=== PATIENT | female | born 1960 | race Caucasian/White ===

== ENCOUNTER 2023-07-10 11:20 | Outpatient (AMB) | payer OTHER, SELFPAY ==
--- NOTE | 2023-07-10 11:38 | HO.SPINEOV ---
Intake Intake Visit Reasons: radiculopathy Intake Note: Ms. Thomas is here today c/o neck pain. MRI done @ [facility]/brought disc. 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 She is a 63-year-old female presents to the office today for evaluation of a multiyear history of pain on the left side of her neck which radiates up to the top of her head. Occasions she will get some pain going down her left arm but really the neck pain is the reason she is here in the office today. She has tried things like Tylenol, ibuprofen, trigger point injections, occipital blocks, chiropractic and physical therapy and nothing seems to help. She is very frustrated because her quality of life is suffering and she has very little ability to get any sleep. She also has low back issues and these 2 things come lb together to make her quality of life significantly poor. She is here today to see if there is any thing we can do surgically to help with the degenerative discs seen on her cervical spine MRI. PMH: Emphysema, she continues to smoke about half pack a day, she does not use home oxygen, lumbar surgery [place] [address] Gonzalez, partial hysterectomy, cholecystectomy Social hx: Smokes half-pack a day Medications: Prozac, trazodone, Klonopin Allergies: Penicillin gives her hives and facial swelling Physical exam: Strength, reflexes, gait are all normal Imaging review: Cervical MRI done at [facility] in april 2023 shows degenerative disc disease at C5-6 and C6-7 with mild to moderate bilateral foraminal narrowing, worse on the left C5-6. Impression: 63-year-old female presents today for evaluation of left-sided neck pain which radiates up the back of her head. She does not have any real radicular symptoms to report. She has no focal weakness or reflex changes. I showed her the MRI done and we discussed the natural history of degenerative disc disease and the difficulty establishing the source of neck pain. I showed her films to Dr. Osuna, he agrees that the discs at C5-6 and C6-7 could be part of the explanation of her neck pain but that there is no guarantee. The typical treatment for this would be anterior cervical diskectomy and fusion. The success rate is 60-70% for treatment of neck pain that has been refractory to conservative treatment. At this point her quality of life is suffering so bad and she has not responded to any of the typical injections and conservative in treatment that she wishes to proceed with surgery. Pt was given risk and benefits of surgery including but not limited to infection, hematoma , nerve injury,durotomy, weakness,bowel/bladder injury, persistent pain, vocal hoarseness, dysphagia, hardware failure as well as the option to continue with conservative treatment and patient wishes to proceed with surgery. Pt is aware they should stop their motrin, aspirin 7 days prior to surgery. All questions were answered to the best of our ability. If there is anything about this patients medical history that we have overlooked or concerns you have about us proceeding with surgery we would appreciate any input you can offer. Thank you for allowing us to care for your patient. The total time spent with this visit with this patient was 45 minutes reviewing history, physical exam, cervical spine imaging review, and implementation of treatment plan or further diagnostic testing Wayne Osuna MD,PhD [facility] Coding Level of Care Code New Pt Level 4 (76566) Diagnoses Neck pain M54.2
== END 2023-07-10 12:45 | disposition home or self-care (01) ==
PROVIDERS: PCP Internal Medicine; Referring Provider Physician Assistant; Visit Provider Physician Assistant
DX: M54.2 Cervicalgia (principal)
CPT/HCPCS: 99204

== ENCOUNTER → 2023-07-10 11:20 | Outpatient (BNVA) | payer OTHER, SELFPAY | PROVIDERS: Visit Provider Physician Assistant ==

== ENCOUNTER 2023-09-01 06:00 | Day surgery (SDC) | payer OTHER, SELFPAY ==
--- NOTE | 2023-08-19 | ECG_ITS ---
Test Reason : PRE OP Blood Pressure : / mmHG Vent. Rate : 063 BPM Atrial Rate : 063 BPM P-R Int : 154 ms QRS Dur : 078 ms QT Int : 408 ms P-R-T Axes : -13 -16 032 degrees QTc Int : 417 ms Normal sinus rhythm Normal ECG No previous ECGs available Referred By: Kaur Benedict Electronically Signed By:TONYA HERNÁNDEZ MD
[2023-08-19 12:13] VITALS: BP 115/58; PULSE 68; RESP 16; O2SAT 95; BMI 20.7
[2023-08-19 14:14] LABS: Hematocrit 38.8 % (37.0-47.0); Hemoglobin 11.9 g/dl (12.0-16.0); Mean Corpuscular HGB Conc 30.7 g/dl (31.0-35.0); Mean Corpuscular Hemoglobin 22.4 pg (27.0-33.0); Mean Corpuscular Volume 73.1 fL (80.0-98.0); Mean Platelet Volume 10.1 fL (9.4-12.3); Platelet Count 281 X10*3/uL (160-400); Red Blood Count 5.31 X10*6/uL (4.20-5.50); Red Cell Distribution Width 14.3 % (11.0-16.0); White Blood Count 9.8 X10*3/uL (4.8-10.8)
[2023-08-19 15:08] LABS: Anion Gap 13 (12-20); Blood Urea Nitrogen 13 mg/dL (9-16); Calcium 9.4 mg/dL (8.4-10.2); Carbon Dioxide 29 mmol/L (22-29); Chloride 101 mmol/L (96-108); Estimated Glomerular Filt Rate > 60; Glucose Random 93 mg/dL (60-115); Sodium 139 mmol/L (135-145)
[2023-09-01] VITALS (13 sets, daily range): BP systolic 91–131; BP diastolic 39–55; PULSE 69–100; RESP 16–18; TEMP 36.3–36.8; O2SAT 95–97; BMI 20.5
--- NOTE | ~2023-09-01 | FL_ITS ---
EXAMINATION: XR FLUOROSCOPY WITH IMAGES CLINICAL INFORMATION: C5-C6, C6-C7 anterior cervical discectomy with fusion. COMPARISON: None available. TECHNIQUE: Fluoroscopy Supervised By: Dr. Gabino Osuna. Fluoroscopy Time: 0.0 minutes. Cumulative Dose: 0.389 mGy. DAP: 0.0605 Gycm2. Images: 2. FINDINGS: Images demonstrate ACDF hardware at C5-C6 and C6-C7 FL/FL guidance in OR IMPRESSION: Fluoroscopy guidance for cervical spine surgery
[2023-09-01] MEDS: Gabapentin 300 MG CAPSULE PO (06:37)
[2023-09-01] MEDS: Lactated Ringers 1,000 ML 100 ML IVCONT (06:37)
[2023-09-01] MEDS: methocarbamoL 750 MG TABLET PO (06:37)
[2023-09-01] MEDS: vancomycin HCL 1,000 MG in 0.9 % Sodium Chloride 250 ML 270 MG IV (06:37)
--- NOTE | 2023-09-01 06:45 | PC.NURSE ---
Pre op Vanco 1000mg dose verified with Jimmie(Pharmacy).
[2023-09-01] MEDS: Albuterol Sulfate (0.083%) 2.5 MG/3 ML VIAL.NEB INHALE (06:53)
--- NOTE | 2023-09-01 06:59 | MHC.SHP ---
Pre-Procedural Eval Section A Date of Service: 09/01/23 Section B Chief Complaint: Cervicalgia Allergies: Allergies Allergy/AdvReac Type Severity Reaction Status Date / Time Penicillins Allergy Severe Anaphylaxis Verified 09/01/23 06:11 Review of Systems Sugical H&P ROS: Negative: Constitution, Cardiovascular, Respiratory, Neurological, Psychiatric, Hem-Onc, Allergic/Immunologic, Gastrointestinal, Genitourinary, Musculoskeletal, Integumentary, Endocrine and Eyes/Ears/Nose/Throat Exam Surgical H&P Exam: Not Evaluated: HEENT, Not Evaluated: Heart, Not Evaluated: Lungs, Not Evaluated: Extremities, Not Evaluated: Abdomen, Not Evaluated: Skin and Not Evaluated: Neurological Plan Diagnosis/Plan: Unchanged I have reviewed the history and physical and performed a pertinent physical examination on my patient. No changes have occurred unless specified. Plan remains the same, C5-6, C6-7 ACDF. Time Spent With Patient Time: Total time managing care of this patient today __10__ minutes.
--- NOTE | 2023-09-01 07:15 | P.CONAN_ITS ---
Documented by User: Kaur Benedict NP 08/24/23 12:38 HPI - Anesthesia Eval Consult details Narrative: 63yo F for C5-6,C6-7 Ant Cerv Discectomy w/ fusion, 09/01/23 Covid in June. Fully recovered. No CP with minimal activity d/t pain. Moderate TOBAR d/t COPD at baseline GERD. prn PPI 1-2 x weekly COPD/Smoker. Does not require albuterol inhaler. Follows with PCP, no pulmo PMFSH Active Problems Active Problems: All Active Problems (Updated 08/19/23 @ 12:12 by Paula Chairez, JERARDO) Neck pain (Acute) Past Medical History Medical History Crohn's disease Personal history of COVID-19 Anxiety GERD (gastroesophageal reflux disease) Renal calculi Low back pain Smoker Emphysema/COPD Family History Family history of problems with anesthesia: No Surgical History Surgical History Hx of cystoscopy Hx of appendectomy Hx of colonoscopy Hx of cholecystectomy History of partial hysterectomy History of lumbar surgery History of Problems with Anesthesia: Yes (PONV with spinal anesthesia, No issue with GA) Social History Social History Household Members: Spouse Housing: House Are you a primary childcare attendant to a significant other at home: No Do you presently have visiting nurse or other home services: No Patient Tobacco Use Status: Current everyday Tobacco user Tobacco use type: Cigarette Cigarettes Per Day: 20 Years Smoked: 50 Smoked in Last 30 Days: Yes Patient Interested in Nicotine Replacement: Yes Patient Given Instructions on How to Stop Smoking: Yes Date Education Initiated: 08/19/23 Second Hand Smoke Exposure: Yes () Use of substances other than those prescribed or required for medical reasons: No Have you been hit, kicked, punched, or otherwise hurt by someone within the past year? If so, by whom?: No Are you DNR?: No Advance Directives: No Advance Directives Information Provided: Yes Advance Directives on File: No Recently lost weight without trying: No Nutrition Risks: No Nutritional Risk Meds Allergies Allergy/AdvReac Type Severity Reaction Status Date / Time Penicillins Allergy Severe Anaphylaxis Verified 09/01/23 06:11 Home Medications Medication Instructions Recorded Confirmed Last Taken Type clonidine HCl 0.1 mg tablet 0.1 mg PO BEDTIME 08/18/23 09/01/23 08/31/23 History fluoxetine 40 mg capsule 40 mg PO DAILY 08/18/23 09/01/23 08/31/23 History trazodone 100 mg tablet 100 mg PO BEDTIME 08/18/23 09/01/23 08/31/23 History albuterol sulfate 90 mcg/actuation 1 puff inhalation Q4H PRN 08/19/23 09/01/23 Unknown History aerosol inhaler Shortness Of Breath esboztj-zlkqhalbvgkfr-tvirvpfr 250 1 tab PO Q4-6H PRN Pain 08/19/23 09/01/23 Unknown History mg-250 mg-65 mg tablet (Excedrin Migraine) naproxen sodium 220 mg capsule 220 mg PO Q12H PRN Pain 08/19/23 09/01/23 08/25/23 History (Aleve) omeprazole 20 mg capsule,delayed 20 mg PO DAILY PRN Gastric Reflux 08/19/23 09/01/23 Unknown History release Exam Exam Date and Time: August 19, 2023 1241 Height,Weight and Vital Signs: Height 5 ft 3 in Weight 53.07 kg Last Vital Signs Pulse 68 08/19/23 12:13 Resp 16 08/19/23 12:13 BP 115/58 L 08/19/23 12:13 Pulse Ox 95 08/19/23 12:13 O2 Del Method Room Air 08/19/23 12:13 Pertinent Lab Results Pertinent Lab Results: Lab Results 08/19/23 Range/Units 13:25 WBC 9.8 (4.8-10.8) X10*3/uL RBC 5.31 (4.20-5.50) X10*6/uL Hgb 11.9 L (12.0-16.0) g/dl Hct 38.8 (37.0-47.0) % MCV 73.1 L (80.0-98.0) fL MCH 22.4 L (27.0-33.0) pg MCHC 30.7 L (31.0-35.0) g/dl RDW 14.3 (11.0-16.0) % Plt Count 281 (160-400) X10*3/uL MPV 10.1 (9.4-12.3) fL Absolute Nucleated RBC 0.000 (0.0-0.012) X10*3/uL Nucleated RBC % (auto) 0.0 (0.0-0.2) /100WBC Sodium 139 (135-145) mmol/L Potassium 4.0 (3.3-5.1) mmol/L Chloride 101 (96-108) mmol/L Carbon Dioxide 29 (22-29) mmol/L Anion Gap 13 (12-20) BUN 13 (9-16) mg/dL Creatinine 0.80 (0.5-1.4) mg/dL Estim Creat Clear Calc 58.0 Estimated GFR > 60 Random Glucose 93 (60-115) mg/dL Calcium 9.4 (8.4-10.2) mg/dL Narrative Narrative: EKG 07/2023 Vent. Rate : 063 BPM Atrial Rate : 063 BPM P-R Int : 154 ms QRS Dur : 078 ms QT Int : 408 ms P-R-T Axes : -13 -16 032 degrees QTc Int : 417 ms Normal sinus rhythm Normal ECG No previous ECGs available Airway Mallampati Class: II TM Dist: >3cm Neck ROM: Limited Partial: Lower Heart: RRR Lungs: Dim bases, but clear throughout Assessment and Plan Assessment Anesthesia Assessment: Anesthesia Plan Discussed, Smoking Cess. Discussed and PAT Visit Final Anesthetic Review Family History of Problems with Anesthesia: No History of Problems with Anesthesia: Yes (PONV with spinal anesthesia, No issue with GA) Documented by User: Radha Suggs DO 09/01/23 07:21 [facility] Past Medical History Medical History Crohn's disease Personal history of COVID-19 Anxiety GERD (gastroesophageal reflux disease) Renal calculi Low back pain Smoker Emphysema/COPD Family History Family history of problems with anesthesia: Yes Surgical History Surgical History Hx of cystoscopy Hx of appendectomy Hx of colonoscopy Hx of cholecystectomy History of partial hysterectomy History of lumbar surgery History of Problems with Anesthesia: Yes (PONV with spinal anesthesia, No issue with GA) Social History Social History Household Members: Spouse Housing: House Are you a primary childcare attendant to a significant other at home: No Do you presently have visiting nurse or other home services: No Patient Tobacco Use Status: Current everyday Tobacco user Tobacco use type: Cigarette Cigarettes Per Day: 20 Years Smoked: 50 Smoked in Last 30 Days: Yes Patient Interested in Nicotine Replacement: Yes Patient Given Instructions on How to Stop Smoking: Yes Date Education Initiated: 08/19/23 Second Hand Smoke Exposure: Yes () Use of substances other than those prescribed or required for medical reasons: No Have you been hit, kicked, punched, or otherwise hurt by someone within the past year? If so, by whom?: No Are you DNR?: No Advance Directives: No Advance Directives Information Provided: Yes Advance Directives on File: No Recently lost weight without trying: No Nutrition Risks: No Nutritional Risk Meds Allergies Allergy/AdvReac Type Severity Reaction Status Date / Time Penicillins Allergy Severe Anaphylaxis Verified 09/01/23 06:11 Home Medications Medication Instructions Recorded Confirmed Last Taken Type clonidine HCl 0.1 mg tablet 0.1 mg PO BEDTIME 08/18/23 09/01/23 08/31/23 History fluoxetine 40 mg capsule 40 mg PO DAILY 08/18/23 09/01/23 08/31/23 History trazodone 100 mg tablet 100 mg PO BEDTIME 08/18/23 09/01/23 08/31/23 History albuterol sulfate 90 mcg/actuation 1 puff inhalation Q4H PRN 08/19/23 09/01/23 Unknown History aerosol inhaler Shortness Of Breath rygsmmp-uhbuflxxcevzs-vfgelhbd 250 1 tab PO Q4-6H PRN Pain 08/19/23 09/01/23 Unknown History mg-250 mg-65 mg tablet (Excedrin Migraine) naproxen sodium 220 mg capsule 220 mg PO Q12H PRN Pain 08/19/23 09/01/23 08/25/23 History (Aleve) omeprazole 20 mg capsule,delayed 20 mg PO DAILY PRN Gastric Reflux 08/19/23 09/01/23 Unknown History release Exam Exam Date and Time: September 01, 2023 0710 Height,Weight and Vital Signs: Height 5 ft 3 in Weight 53.07 kg Last Vital Signs Pulse 68 08/19/23 12:13 Resp 16 08/19/23 12:13 BP 115/58 L 08/19/23 12:13 Pulse Ox 95 08/19/23 12:13 O2 Del Method Room Air 08/19/23 12:13 Vital Signs Pulse Rate 68 08/19/23 12:13 Respiratory Rate 16 08/19/23 12:13 Blood Pressure 115/58 L 08/19/23 12:13 Pulse Oximetry 95 08/19/23 12:13 Oxygen Delivery Method Room Air 08/19/23 12:13 Temperature 97.5 F 09/01/23 06:40 Pulse Rate 69 09/01/23 06:53 Respiratory Rate 16 09/01/23 06:53 Blood Pressure 111/42 L 09/01/23 06:40 Pulse Oximetry 95 09/01/23 06:40 Oxygen Delivery Method Room Air 09/01/23 06:40 Airway Mallampati Class: II TM Dist: >3cm Neck ROM: Limited Partial: Lower Heart: S1S2 Lungs: CTAB Assessment and Plan Assessment Anesthesia Assessment: Anesthesia Plan Discussed and Chart Reviewed Final Anesthetic Review Family History of Problems with Anesthesia: Yes History of Problems with Anesthesia: Yes (PONV with spinal anesthesia, No issue with GA) NPO: Yes ASA Class: II Final Preanesthetic Review: No Changes in Pt Med Stat, Meds/Allgs Chart Reviewed, Consent Obtained/Reviewed and Anes Risks/Benef Reviewed Patient Risk: Low Procedure Risk: Low Anesthetic Plan Anesthetic Plan: GA and Agree w/ Assess. and Plan Disposition: Standard PACU
--- NOTE | 2023-09-01 08:15 | PC.NURSE ---
Pt received Albuterol tx pre-op. Dr Suggs aware.
--- NOTE | 2023-09-01 09:35 | PM.DS ---
DS: Providers Provider Date of Service: 09/01/23 Date of discharge: 09/01/23 Primary care physician: Aby Webster MD Admitting clinician: Gabino Osuna DS: Diagnosis Discharge Diagnosis (1) Neck pain: Status: Acute DS: Summary Time Attestation Discharge coordination time: Less than 30 minutes Quality: Safe Use of Opioids Does Pt have an Active Cancer Diagnosis on the Problem List?: No Quality: Stroke Does the patient have a stroke diagnosis?: No Physical Exam Vital Signs: Vital Signs: Last Vital Signs Temp 97.5 F 09/01/23 06:40 Pulse 69 09/01/23 06:53 Resp 16 09/01/23 06:53 BP 111/42 L 09/01/23 06:40 Pulse Ox 95 09/01/23 06:40 O2 Del Method Room Air 09/01/23 06:40 BMI result Body Mass Index 20.5 Discharge Plan Discharge Patient Disposition: Home, Self-Care Referrals: Aby Webster MD [Primary Care Provider] - 1 Week Discharge Medications: New docusate sodium [Colace] 100 mg capsule 100 mg PO BID Qty: 20 0RF oxycodone 5 mg tablet 5 mg PO Q4H PRN (Reason: pain) Qty: 30 0RF Rx Instructions: Partial Fill upon patient request. Continued fluoxetine 40 mg capsule 40 mg PO DAILY clonidine HCl 0.1 mg tablet 0.1 mg PO BEDTIME trazodone 100 mg tablet 100 mg PO BEDTIME omeprazole 20 mg Capsule,Delayed Release(Dr/Ec) 20 mg PO DAILY PRN (Reason: Gastric Reflux) Excedrin Migraine 250-250-65 mg Tablet 1 tab PO Q4-6H PRN (Reason: Pain) naproxen sodium [Aleve] 220 mg Capsule 220 mg PO Q12H PRN (Reason: Pain) albuterol sulfate 90 mcg/actuation HFA aerosol inhaler 1 puff inhalation Q4H PRN (Reason: Shortness Of Breath) Discharge Orders: Discharge Order (Routine); Ordered 09/01/23 Ordered By: Wayne Scott Diet: Advance to usual diet Activity on Discharge: As tolerated Activity Restrictions/Additional Instructions: After your spinal surgery we ask you to observe the following restrictions/guidelines: Activity: It is normal to feel some discomfort as you increase your activity, but that will improve with time. We ask you avoid heavy lifting or acitivities that cause pain. As a general rule, 8lbs is a safe limit for lifting right after surgery. Walk as much as you feel comfortable but not to exhaustion. You will feel extra tired the first few days after surgery. Stay well hydrated. It is OK to walk up and down stairs You may return to driving when you are off narcotics (such as vicodin, oxycodone, dilaudid, etc), and you are back to normal functional capacity. If you have any concerns please check with office before driving. Return to work is specific to each patient and each surgery, so please speak with your doctor/PA at first follow up. Please bring paperwork such as FMLA at that time if you need it filled out. Medications: For optimum pain control, it is best to start with a combination of 500 mg of Tylenol every 4 hours with 600 mg of Motrin every 8 hours, and use narcotics as needed in between for breakthrough pain. We will give you a short supply of narcotics after surgery (usually one weeks worth). If you need more please call the office but do not use more than prescribed. You will need to give our office 48 hours notice if you need narcotics refilled and we do not fill narcotics on weekends or evenings. If you are on a narcotic, it is a good idea to take a stool softener such as colace or senna to avoid constipation If you take blood thinner such as aspirin, Plavix, Coumadin, Effient, Eliquis etc for conditions such as Afib, DVT, Pulmonary embolus, coronary disease, stents etc please speak with your surgeon about specific details as to when you can resume these medications. You can resume NSAIDs on post op day 1 (eg: Motrin, Naproxen, etc). Follow up: Please call the office, , after surgery to arrange a 3 week follow up for wound check. Wound Care: You may remove your dressing on the first day after surgery. You may leave open to air. Please do not remove the steri strips underneath. they will fall off on their own in one week. IT IS NORMAL FOR THE WOUND TO OOZE OR BE BLOODY FOR A FEW DAYS AFTER SURGERY. IF THIS HAPPENS JUST PLACE NEW DRESSING OVER IT TO AVOID STAINING CLOTHES. You may shower on post op day # 1 We ask that you do not let the water soak the wound. If it does get wet, just towel dry lightly. Please do not scrub your incision or place any type of chemical/ointment on the wound. No tub baths, pools or jacuzzis for one month. If you have any leaking or redness from your wound, or fevers, please call office
--- NOTE | 2023-09-01 09:36 | W.PM.OPN ---
Operative Note Operative Note Date of Service: 09/01/23 Narrative: Preoperative Diagnosis: Cervical degenerative disc disease C5-6, C6-7 with chronic neck pain Procedure: C5-6, C6-7 Anterior discectomy, arthrodesis and implantation cage ; C5-C7 anterior instrumentation ; local autograft; microscope Informed Consent was obtained for this operation. I have explained the nature, purpose and benefits of the operation. I have discussed the risks and benefit of the operation including possible complications or adverse events with patient/family. Alternative(s) were discussed with the patient with their relative benefits and risks as well as the consequences of not accepting the operation were included in obtaining consent. Surgeon: NAHED COTO MD, PHD Procedure Assisted By: kavin Hall Description of Procedure: This 63-year-old female suffering from chronic neck pain. An MRI shows severe degenerative disc disease C5-6 and C6-7. She failed conservative treatment. We offered her an anterior diskectomy and fusion of the above-mentioned levels. The procedure and complications were explained. The patient was consented. The patient was brought to the operating room and endotracheally intubated. The patient was put in supine position with slight extension of the neck. Prep and drape was done followed by timeout. A mid cervical incision was made followed by opening of the platysma. The prevertebral fascia was reached following the natural planes while the physician video production assistant provided manual retraction. The prevertebral fascia was opened to expose the disc space. A spinal needle was placed in the disk space to confirm the correct level with xray. The longus colli muscles were released bilaterally and a self retaining retractor was inserted. The anterior osteophytes were resected from C5-6 and C6-7 and saved for autograft. An initial diskectomy was done of C5-6 and C6-7 towards the posterior annulus. Two [place] pins were placed in the C5 and C6 vertebral bodies and distraction was give over the interspace. Poor bone quality was encountered. The microscope was brought in. The remainder of the discectomy was completed. The posterior ligament was opened and resected to expose the underlying dura. Osteophytes were resected from the body of C5-C6 and saved for autograft. The endplates were prepared after which a 6 mm cage filled with autograft was inserted into the disc space. A separate attached plate was locked down with 2 x 14 mm screws as anterior instrumentation. The same procedure was repeated for the C6-C7 level. Severe degeneration of the disc was seen. The endplates were prepared followed by placement of a 6 mm cage filled with autograft. A separate attached plate was locked down with 2 x 14 mm screws. Final x-rays in AP and lateral projection showed a satisfactory position of the implant. The physician video production assistant took over. The [place] pin was removed. Hemostasis was done. He closed the incision in 2 layers with a 3-0 Vicryl. Steri-Strips used to approximate incision. An OpSite with Tegaderm was used to cover the incision. All sponge and needle counts were correct. Patient was extubated and transported in stable is to recovery room. Anesthesia: General Estimated Blood Loss (ml): 60 mL Duration of Surgery: 90 minutes Postoperative Plan: Discharge home Complications: None
== END 2023-09-01 12:26 | disposition home or self-care (01) ==
PROVIDERS: Nurse Practitioner; PCP Internal Medicine; Visit Provider Neurological Surgery
PROC: (CPT 22551; principal; 2023-09-01 07:30)
DX: M50.322 Other cervical disc degeneration at C5-C6 level (principal); M50.323 Other cervical disc degeneration at C6-C7 level; G89.29 Other chronic pain; M54.2 Cervicalgia; M54.50 Low back pain, unspecified; J43.9 Emphysema, unspecified; F17.210 Nicotine dependence, cigarettes, uncomplicated; Z79.899 Other long term (current) drug therapy; Z88.0 Allergy status to penicillin; Z98.890 Other specified postprocedural states
CPT/HCPCS: 22551; 22552; 22853 ×2; 20936; 22845; 36415; 80048; 85027; 93005; 94640; C1713; J0131; J1100; J2250; J2371; J2405; J3010; J3370; L8699

== ENCOUNTER → 2023-09-01 06:00 | Outpatient (BNV) | payer OTHER, SELFPAY | PROVIDERS: PCP Internal Medicine; Visit Provider Physician Assistant | DX: M50.022 Cervical disc disorder at C5-C6 level with myelopathy (principal); M50.023 Cervical disc disorder at C6-C7 level with myelopathy | CPT/HCPCS: 20936; 22551; 22552; 22845; 22853; 99499 ==

== ENCOUNTER 2023-09-23 12:37 | Outpatient (AMB) | payer OTHER, SELFPAY ==
--- NOTE | 2023-09-23 13:02 | HO.SPINEOV ---
Intake Intake Visit Reasons: 1st post op Intake Note: Ms. Thomas is here today for her 1st post-op visit. Human Resource Adviser Required: No Allergies Penicillins Allergy (Severe, Verified 09/01/23 06:11) Anaphylaxis Assessment & Plan Assessment & Plan (1) History of cervical spinal surgery: Code(s): Z98.890 - Other specified postprocedural states Plan Procedure: C5-6, C6-7 ACF Teresa comes in today for her 1st postoperative visit. She reports she is very satisfied with the surgery and feels much better than she did pre-operatively. She reports she is up walking around and completing the majority of her ADLs. She reports that she no longer suffers from significant neck pain but does still report mild shoulder pain on the left side with good relief with OTC pain medication. She did raise questions regarding a fall that she had in her 1st 2 days postoperatively where she log rolled out of bed and hit her chin on her nightstand. She did not have any symptoms after this event and this likely did not cause any problems to her fusion instrumentation. No neurological deficits. Patient is able to ambulate well, rises from a seated position without difficulty. Incision site is closed, well healing, with no signs of drainage. We will follow-up with the patient in 6 weeks for her 2nd postoperative visit. At that time we will get cervical x-rays to review with the patient. Shiva Osuna MD,PhD [facility] Coding Level of Care Code Global (61563) Diagnoses History of cervical spinal surgery Z98.890
== END 2023-09-23 13:16 | disposition home or self-care (01) ==
PROVIDERS: PCP Internal Medicine; Visit Provider Physician Assistant
DX: Z98.890 Other specified postprocedural states (principal)
CPT/HCPCS: 99024

== ENCOUNTER → 2023-09-23 12:37 | Outpatient (BNVA) | payer OTHER, SELFPAY | PROVIDERS: Visit Provider Physician Assistant ==

== ENCOUNTER 2024-03-25 15:04 | Outpatient (AMB) | payer OTHER, SELFPAY ==
--- NOTE | 2024-03-25 15:09 | A.SPINEOV_ITS ---
Intake Visit Reasons: neck pain Intake Note: Ms. Thomas is here today c/o neck pain. Security Officer Required: No Allergies Penicillins Allergy (Severe, Verified 09/01/23 06:11) Anaphylaxis Assessment & Plan Assessment & Plan (1) History of cervical spinal surgery: Code(s): Z98.890 - Other specified postprocedural states Category: Surgical (2) Neck pain: Code(s): M54.2 - Cervicalgia Category: Medical Plan: Dear colleague, On 03/25/2024 I saw for postoperative visit Teresa Thomas. She status post anterior diskectomy and fusion C5-6 and C6-7. She was initially doing well but lately her preoperative symptoms have returned. She was aware that this could happen as it is unpredictable how neck pain is going to respond to a cervical fusion. A 2nd complaint is back pain radiating to her left thigh an outside of her left lower leg. This has been going on for about 2 months. Today cervical x-rays showed good position of the interbody devices and anterior instrumentation. I hope that improvement of the neck pain will occur in the near future. I will order an MRI of the lumbar spine to see if we can find a reason for her left lumbar radiculopathy. I will see the patient after the MRI is done. Gabino Osuna MD, PhD Spine Fellowship Trained Neurosurgeon Director, [facility] (3) Lumbar radiculopathy: Code(s): M54.16 - Radiculopathy, lumbar region Category: Medical Plan q Orders: Orders XR cervical spine 4V Today M54.2 - Cervicalgia, Z98.890 - Other specified postprocedural states MR lumbar spine wo con Today M54.16 - Radiculopathy, lumbar region Coding Level of Care Code Global (29817) Diagnoses History of cervical spinal surgery Z98.890 Neck pain M54.2 Lumbar radiculopathy M54.16
== END 2024-03-25 15:36 | disposition home or self-care (01) ==
PROVIDERS: PCP Internal Medicine; Visit Provider Neurological Surgery
DX: M54.2 Cervicalgia (principal); M54.16 Radiculopathy, lumbar region; Z98.890 Other specified postprocedural states
CPT/HCPCS: 99213

== ENCOUNTER 2024-03-25 15:04 | Outpatient (REF) | payer OTHER, SELFPAY ==
--- NOTE | ~2024-03-25 | XR_ITS ---
EXAMINATION: XR CERVICAL SPINE CLINICAL INFORMATION: Other specified postprocedural status. COMPARISON: Fluoroscopy in OR images of 09/01/2023, MR cervical spine of 04/27/2023. TECHNIQUE: 4 views of the cervical spine. FINDINGS: The bones are diffusely demineralized. Degenerative changes between the anterior arch of C1 and the odontoid. Spondylosis with moderate loss of disc space height at C4-C5. Status post ACDF with hardware spanning C5-C6-C7 levels. Hardware appears intact. Alignment maintained. Limited visualization of C7 due to overlying soft tissues. XR/XR cervical spine 4V IMPRESSION: Status post ACDF with hardware spanning C5-C6-C7 levels. Hardware appears intact. Alignment maintained.
== END 2024-03-25 15:05 | disposition home or self-care (01) ==
LOC: HO.HOSX 15:04
PROVIDERS: PCP Internal Medicine; Visit Provider Neurological Surgery
DX: Z98.890 Other specified postprocedural states (principal); M54.2 Cervicalgia; Z98.1 Arthrodesis status
CPT/HCPCS: 72050

== ENCOUNTER 2024-04-20 16:01 | Outpatient (REF) | payer OTHER, SELFPAY ==
--- NOTE | ~2024-04-20 | MR_ITS ---
EXAMINATION: MR LUMBAR SPINE WITHOUT CONTRAST CLINICAL INFORMATION: Radiculopathy, lumbar region. COMPARISON: None available. TECHNIQUE: MRI of the lumbar spine was obtained using routine sequences without contrast. FINDINGS: Normal alignment. Interbody spacer at L5-S1. No acute bone marrow abnormality. The vertebral body heights are preserved. Multilevel disc desiccation without significant disc height loss. Multilevel endplate osteophytosis. The visualized spinal cord is normal in caliber. No abnormal cord signal. The conus medullaris terminates at L1-2. T12-L1: No significant spinal canal or neural foraminal narrowing. L1-2: No significant spinal canal or neural foraminal narrowing. L2-3: No significant spinal canal or neural foraminal narrowing. L3-4: Diffuse disc bulge with superimposed left subarticular disc protrusion. Bilateral facet arthrosis. No significant spinal canal stenosis. Mild to moderate left and mild right neural foraminal narrowing. L4-5: Diffuse disc bulge, ligamentum flavum hypertrophy, and bilateral facet arthrosis with trace right facet joint effusion. No significant spinal canal stenosis. Moderate left neural foraminal narrowing with the disc abutting the left exiting L4 nerve roots. L5-S1: No significant spinal canal or neural foraminal narrowing. The paravertebral soft tissues are unremarkable. Bilateral renal cysts. MR/MR lumbar spine wo con IMPRESSION: Multilevel lumbar spondylosis without significant spinal canal stenosis. Neural foraminal narrowing is worst and moderate on the left at L4-L5 with the disc abutting the exiting left L4 nerve root.
== END 2024-04-20 16:02 | disposition home or self-care (01) ==
LOC: HO.MRI 16:01
PROVIDERS: PCP Internal Medicine; Visit Provider Neurological Surgery
DX: M54.16 Radiculopathy, lumbar region (principal)
CPT/HCPCS: 72148

== ENCOUNTER 2024-06-17 11:32 | Outpatient (AMB) | payer OTHER, SELFPAY ==
--- NOTE | 2024-06-17 11:33 | HO.SPINEOV ---
Intake Visit Reasons: MRI follow up Intake Note: Ms. Thomas is here to F/u on the results to MRI Correctional Treatment Specialist Required: No Allergies Penicillins Allergy (Severe, Verified 09/01/23 06:11) Anaphylaxis Assessment & Plan Assessment & Plan (1) Lumbar radiculopathy: Code(s): M54.16 - Radiculopathy, lumbar region Category: Medical Plan Mrs Thomas is returning today to review her MRI. The last time she saw Dr. Osuna she was reporting that she has had a multiyear history of pain going down her left leg into her outer calf with numbness in the top of her foot. The pain has been getting steadily worse. She had a previous L5-S1 anterior lumbar interbody fusion done by Dr. Gonzalez 20 years ago. She did have some issues after the surgery and never felt quite right, but was functional and moving around. This new back pain and pain going down her leg started maybe 4 or 5 years ago in his steadily gotten worse. It is present throughout the day, can be present with changing positions. She has an intact lower extremity strength exam. She is trialed gddv-jrk-qyatqah anti-inflammatories, Tylenol. She has not done any injections for this recently. No recent physical therapy. Dr. Osuna and I reviewed her MRI and x-rays done here at [facility], and although there is foraminal stenosis at L4, her standing x-rays show a significant dextroscoliosis develop in the upright posture which we think may be also contributing to compression of the L5 nerve in the lateral recess. He thinks she would be a good candidate for a L4-5 trans Kambin oblique lateral lumbar interbody fusion. We have gone ahead and tentatively booked her for the 1st week in August. I told her however that her insurance company likely would not approve the operation unless she attempted 6 weeks of physical therapy so I gave her a referral for that. I do not think that 6 weeks of PT is going to correct her scoliosis or make her symptom free after all these years but nonetheless this is the system that we have to work within. She will call me once the therapy is completed so we can document that she went through it. Pt was given risk and benefits of surgery including but not limited to infection, hematoma , nerve injury,durotomy, weakness,bowel/bladder injury, persistent pain, adjacent segment disease as well as the option to continue with conservative treatment and patient wishes to proceed with surgery. Pt is aware they should stop their motrin, aspirin 7 days prior to surgery. All questions were answered to the best of our ability. If there is anything about this patients medical history that we have overlooked or concerns you have about us proceeding with surgery we would appreciate any input you can offer. Total amount of time spent in this visit was 20 minutes in discussion of symptoms, lumbar MRI imaging results and subsequent plan of care Wayne Osuna MD,PhD [facility] Orders: Orders XR lumbar spine 4V min Today M54.16 - Radiculopathy, lumbar region PT Evaluation and Treatment Today M54.16 - Radiculopathy, lumbar region Coding Level of Care Code Est Pt Level 3 (88324) Diagnoses Lumbar radiculopathy M54.16
== END 2024-06-17 13:39 | disposition home or self-care (01) ==
PROVIDERS: PCP Internal Medicine; Visit Provider Physician Assistant
DX: M54.16 Radiculopathy, lumbar region (principal)
CPT/HCPCS: 99213

== ENCOUNTER 2024-06-17 11:32 | Outpatient (REF) | payer OTHER, SELFPAY | END 2024-06-17 11:33 | disposition home or self-care (01) | LOC: HO.HOSX 11:32 | PROVIDERS: PCP Internal Medicine; Visit Provider Physician Assistant | DX: Z13.89 Encounter for screening for other disorder (principal) ==

== ENCOUNTER 2024-06-17 12:03 | Outpatient (REF) | payer OTHER, SELFPAY ==
--- NOTE | ~2024-06-17 | XR_ITS ---
EXAMINATION: XR LUMBAR SPINE CLINICAL INFORMATION: Radiculopathy in the lumbar region. COMPARISON: MRI dated 11/20/2023. TECHNIQUE: AP and lateral views of the lumbar spine were obtained. Lateral views were obtained in flexion, extension, and neutral positions. FINDINGS: There is moderate left convex lumbar scoliosis centered at L1-L2. The patient is status post L5-S1 fusion with 2 interbody grafts. Solid osseous bridging is present at this level. There is lnpf-aa-zfydkyiv degenerative disc disease at L2-L3 and L3-L4 with loss of vertebral disc height and endplate osteophytes. More mild degenerative disc disease at other levels. Vertebral body heights are normal. No fractures. Facet arthropathy is suspected at L4-L5. No vertebral spondylolisthesis. No abnormal motion is appreciated with flexion and extension. Surgical clips are present in the right mid abdomen and left hemipelvis. No acute soft tissue findings. XR/XR lumbar spine 4V min IMPRESSION: 1. Status post L5-S1 fusion with solid osseous bridging. 2. Ycni-wz-qhjdejav degenerative disc disease at L2-L3 and L3-L4. 3. Moderate left convex lumbar scoliosis. 4. No abnormal motion with flexion and extension. Electronically signed by: Jluis Tong MD 07/11/2024 06:01 PM EDT
== END 2024-06-17 12:04 | disposition home or self-care (01) ==
LOC: HO.XRAY 12:03
PROVIDERS: PCP Internal Medicine; Visit Provider Physician Assistant
DX: M54.16 Radiculopathy, lumbar region (principal)
CPT/HCPCS: 72110

== ENCOUNTER → 2024-08-15 10:21 | Outpatient (BNV) | payer OTHER, SELFPAY | PROVIDERS: Admitting Provider Neurological Surgery; PCP Internal Medicine; Visit Provider Internal Medicine Cardiovascular Disease | DX: Z01.810 Encounter for preprocedural cardiovascular examination (principal) | CPT/HCPCS: 93010 ==

== ENCOUNTER 2024-08-16 07:41 | Inpatient (IN) | payer OTHER, SELFPAY ==
--- NOTE | 2024-08-15 10:21 | ECG_ITS ---
Test Reason : PREOP Blood Pressure : / mmHG Vent. Rate : 068 BPM Atrial Rate : 068 BPM P-R Int : 142 ms QRS Dur : 072 ms QT Int : 380 ms P-R-T Axes : 009 -19 043 degrees QTc Int : 404 ms Normal sinus rhythm Normal ECG When compared with ECG of 19-AUG-2023 13:04, No significant change was found Referred By: Kaur Benedict Electronically Signed By:Benton Mcnamara
[2024-08-15 11:35] LABS: Hematocrit 38.4 % (37.0-47.0); Hemoglobin 11.7 g/dl (12.0-16.0); Mean Corpuscular HGB Conc 30.5 g/dl (31.0-35.0); Mean Corpuscular Hemoglobin 22.1 pg (27.0-33.0); Mean Corpuscular Volume 72.6 fL (80.0-98.0); Mean Platelet Volume 9.8 fL (9.4-12.3); Platelet Count 284 X10*3/uL (160-400); Red Blood Count 5.29 X10*6/uL (4.20-5.50); Red Cell Distribution Width 14.5 % (11.0-16.0); White Blood Count 9.1 X10*3/uL (4.8-10.8)
[2024-08-15 12:19] LABS: Anion Gap 12 (12-20); Blood Urea Nitrogen 16 mg/dL (9-16); Calcium 9.9 mg/dL (8.4-10.2); Carbon Dioxide 29 mmol/L (22-29); Chloride 102 mmol/L (96-108); Estimated Glomerular Filt Rate 58; Glucose Random 97 mg/dL (60-115); Potassium 4.8 mmol/L (3.3-5.1); Sodium 138 mmol/L (135-145)
--- NOTE | 2024-08-15 13:12 | P.CONAN_ITS ---
Documented by User: Kaur Benedict NP 08/15/24 13:14 HPI - Anesthesia Eval Consult details Narrative: 64yo F for L4-5 Transkambin Lumbar Interbody Fusion s/p Ant Cerv Discectomy w/ fusion, 09/01/23 with GA-ETT 7 (Glidescope used d/t limited ROM, receding chin, small mouth, anterior larynx) PMFSH Active Problems Active Problems: All Active Problems Lumbar radiculopathy (Acute) History of cervical spinal surgery (Acute) Neck pain (Acute) Past Medical History Medical History Crohn's disease Personal history of COVID-19 Anxiety GERD (gastroesophageal reflux disease) Renal calculi Low back pain Smoker Emphysema/COPD Family History Family history of problems with anesthesia: Yes Surgical History Surgical History Hx of cystoscopy Hx of appendectomy Hx of colonoscopy Hx of cholecystectomy History of partial hysterectomy History of lumbar surgery History of Problems with Anesthesia: Yes Social History Social History Household Members: Spouse Housing: House Are you a primary acute care clinical nurse specialist to a significant other at home: No Do you presently have visiting nurse or other home services: No Comment: final count correct Patient Tobacco Use Status: Current everyday Tobacco user Tobacco use type: Cigarette Cigarette Packs Per Day: 1.0 Cigarettes Per Day: 20.0 Years Smoked: 50 Smoked in Last 30 Days: Yes Second Hand Smoke Exposure: No Use of substances other than those prescribed or required for medical reasons: No Have you been hit, kicked, punched, or otherwise hurt by someone within the past year? If so, by whom?: No Are you DNR?: No Advance Directives: No Advance Directives Information Provided: No Advance Directives on File: No Meds Allergies Allergy/AdvReac Type Severity Reaction Status Date / Time Penicillins Allergy Severe Anaphylaxis Verified 09/01/23 06:11 Home Medications ?Medication ?Instructions ?Recorded ?Confirmed ?Last Taken ?Type clonidine HCl 0.1 mg tablet 0.1 mg PO BEDTIME 08/18/23 08/16/24 08/15/24 History fluoxetine 40 mg capsule 40 mg PO DAILY 08/18/23 08/16/24 08/15/24 History trazodone 100 mg tablet 100 mg PO BEDTIME 08/18/23 08/16/24 08/15/24 History albuterol sulfate 90 mcg/actuation 1 puff inhalation Q4H PRN 08/19/23 08/16/24 Unknown History aerosol inhaler Shortness Of Breath avlknsu-xfguhaymqvafm-ezggzdvi 250 1 tab PO Q4-6H PRN Pain 08/19/23 08/16/24 08/15/24 History mg-250 mg-65 mg tablet (Excedrin Migraine) naproxen sodium 220 mg capsule 220 mg PO Q12H PRN Pain 08/19/23 08/16/24 08/09/24 History (Aleve) omeprazole 20 mg capsule,delayed 20 mg PO DAILY PRN Gastric Reflux 08/19/23 08/16/24 08/16/24 History release Exam Pertinent Lab Results Pertinent Lab Results: Laboratory Tests 08/15/24 08/15/24 10:55 10:58 WBC 9.1 RBC 5.29 Hgb 11.7 L Hct 38.4 MCV 72.6 L MCH 22.1 L MCHC 30.5 L RDW 14.5 Plt Count 284 MPV 9.8 Absolute Nucleated RBC 0.000 Nucleated RBC % (auto) 0.0 Sodium 138 Potassium 4.8 Chloride 102 Carbon Dioxide 29 Anion Gap 12 BUN 16 Creatinine 0.96 Estim Creat Clear Calc TNP Estimated GFR 58 Random Glucose 97 Calcium 9.9 Blood Type O Negative Antibody Screen NEGATIVE Narrative Narrative: EKG 07/2024 Vent. Rate : 068 BPM Atrial Rate : 068 BPM P-R Int : 142 ms QRS Dur : 072 ms QT Int : 380 ms P-R-T Axes : 009 -19 043 degrees QTc Int : 404 ms Normal sinus rhythm Normal ECG When compared with ECG of 19-AUG-2023 13:04, No significant change was found Assessment and Plan Assessment Anesthesia Assessment: Chart Reviewed Final Anesthetic Review Family History of Problems with Anesthesia: Yes History of Problems with Anesthesia: Yes Documented by User: Aroldo Donahue MD 08/16/24 07:24 [facility] Past Medical History Medical History Crohn's disease Personal history of COVID-19 Anxiety GERD (gastroesophageal reflux disease) Renal calculi Low back pain Smoker Emphysema/COPD Family History Family history of problems with anesthesia: No Surgical History Surgical History Hx of cystoscopy Hx of appendectomy Hx of colonoscopy Hx of cholecystectomy History of partial hysterectomy History of lumbar surgery History of Problems with Anesthesia: No Social History Social History Household Members: Spouse Housing: House Are you a primary acute care clinical nurse specialist to a significant other at home: No Do you presently have visiting nurse or other home services: No Comment: final count correct Patient Tobacco Use Status: Current everyday Tobacco user Tobacco use type: Cigarette Cigarette Packs Per Day: 1.0 Cigarettes Per Day: 20.0 Years Smoked: 50 Smoked in Last 30 Days: Yes Second Hand Smoke Exposure: No Use of substances other than those prescribed or required for medical reasons: No Have you been hit, kicked, punched, or otherwise hurt by someone within the past year? If so, by whom?: No Are you DNR?: No Advance Directives: No Advance Directives Information Provided: No Advance Directives on File: No Meds Allergies Allergy/AdvReac Type Severity Reaction Status Date / Time Penicillins Allergy Severe Anaphylaxis Verified 09/01/23 06:11 Home Medications ?Medication ?Instructions ?Recorded ?Confirmed ?Last Taken ?Type clonidine HCl 0.1 mg tablet 0.1 mg PO BEDTIME 08/18/23 08/16/24 08/15/24 History fluoxetine 40 mg capsule 40 mg PO DAILY 08/18/23 08/16/24 08/15/24 History trazodone 100 mg tablet 100 mg PO BEDTIME 08/18/23 08/16/24 08/15/24 History albuterol sulfate 90 mcg/actuation 1 puff inhalation Q4H PRN 08/19/23 08/16/24 Unknown History aerosol inhaler Shortness Of Breath etdhmsa-kkptrkbpshgeg-wzhgbsip 250 1 tab PO Q4-6H PRN Pain 08/19/23 08/16/24 08/15/24 History mg-250 mg-65 mg tablet (Excedrin Migraine) naproxen sodium 220 mg capsule 220 mg PO Q12H PRN Pain 08/19/23 08/16/24 08/09/24 History (Aleve) omeprazole 20 mg capsule,delayed 20 mg PO DAILY PRN Gastric Reflux 08/19/23 08/16/24 08/16/24 History release Exam Airway Mallampati Class: II TM Dist: >3cm Neck ROM: Limited Partial: Lower Assessment and Plan Assessment Anesthesia Assessment: Anesthesia Plan Discussed Final Anesthetic Review Family History of Problems with Anesthesia: No History of Problems with Anesthesia: No NPO: Yes ASA Class: III Final Preanesthetic Review: No Changes in Pt Med Stat, Meds/Allgs Chart Reviewed, Consent Obtained/Reviewed and Anes Risks/Benef Reviewed Patient Risk: Intermediate Procedure Risk: Intermediate Anesthetic Plan Anesthetic Plan: GA Disposition: Standard PACU
[2024-08-16] VITALS (14 sets, daily range): BP systolic 94–135; BP diastolic 49–64; PULSE 68–92; RESP 14–20; TEMP 36–36.8; O2SAT 94–100; BMI 21.4
--- NOTE | ~2024-08-16 | FL_ITS ---
EXAMINATION: FLUORO GUIDANCE IN OR CLINICAL INFORMATION: L4-L5 Trans-Kambin lumbar interbody fusion. COMPARISON: None available. TECHNIQUE: Fluoroscopy supervised by: Dr. Gabino Osuna. Fluoroscopy time: 1 minute 49 seconds. Cumulative Dose: 51.46 mGy. DAP: 16.427 Gy-cm2 (martinez-centimeter squared). Images: 3. FINDINGS: Fluoroscopy provided in OR during L4-L5 Trans-Kambin lumbar interbody fusion. FL/FL guidance in OR IMPRESSION: Fluoroscopy during procedure. Please see procedure report for additional information. Electronically signed by: Mj Wooten MD 11/22/2024 11:45 AM [facility]
[2024-08-16] MEDS: methocarbamoL 750 MG TABLET PO (06:44)
[2024-08-16] MEDS: Gabapentin 300 MG CAPSULE PO ×2 (06:44→15:14)
[2024-08-16] MEDS: Lactated Ringers 1,000 ML 100 ML IVCONT (06:45)
[2024-08-16] MEDS: vancomycin HCL 1,000 MG in 0.9 % Sodium Chloride 250 ML 270 MG IV ×2 (06:47→18:07)
--- NOTE | 2024-08-16 07:12 | MHC.SHP ---
Pre-Procedural Eval Section A - 24 Hr Update-Section A only Date of Service: 08/16/24 The patient is an INPATIENT: No Changes since office visit: No Cold of Flu in the past 2 weeks, No New Medical Problems, No Changes in Medication and No Patient answered all questions The patient has been examined within 24 hours of the surgical procedure. The History & Physical has been completed within 30 days and I have reviewed it.: No Section B - Complete if H&P > 30 days Chief Complaint: Radiculopathy, lumbar region Allergies: Allergies Allergy/AdvReac Type Severity Reaction Status Date / Time Penicillins Allergy Severe Anaphylaxis Verified 09/01/23 06:11 Review of Systems Sugical H&P ROS: Negative: Constitution, Cardiovascular, Respiratory, Neurological, Psychiatric, Hem-Onc, Allergic/Immunologic, Gastrointestinal, Genitourinary, Musculoskeletal, Integumentary, Endocrine and Eyes/Ears/Nose/Throat Exam Surgical H&P Exam: Normal: HEENT, Normal: Heart, Normal: Lungs, Normal: Extremities, Normal: Abdomen, Normal: Skin and Normal: Neurological (awake, alert,oriented x 3 ) Plan Diagnosis/Plan: Unchanged L4-5 transkambin oblique lateral lumbar interbody fusion Time Spent With Patient Time: Total time managing care of this patient today _7___ minutes.
--- NOTE | 2024-08-16 08:14 | PHA.MEDREC ---
Pharmacy Consult ? Medication Reconciliation Pharmacy has completed the medication reconciliation. Reviewed med rec done by nursing
--- NOTE | 2024-08-16 08:49 | W.PM.OPN ---
Operative Note Operative Note Date of Service: 08/16/24 Narrative: Preoperative diagnosis: 1) lumbar degenerative scoliosis 2) left lumbar radiculopathy Postprocedure diagnosis: 1) same as above Procedure: 1) L4-5 oblique lateral lumbar interbody fusion with discectomy, preparation of the endplates and placement of a titanium bullet cage packed with allograft, anterior to the transverse process in modified prone position, with intraoperative biplanar fluoroscopy imaging and electrophysiological monitoring 2) L4-5 posterior minimally invasive pedicle screw placement and posterior lateral instrumentation and fusion with intraoperative biplanar fluoroscopic imaging and electrophysiological monitoring 3 injection of 10 cc of Exparel at the transverse process for a muscular erector spinae block and additional Exparel in paravertebral tissue for postop management Consent Informed Consent was obtained for this operation. I have explained the nature, purpose and benefits of the operation. I have discussed the risks and benefit of the operation including possible complications or adverse events with patient/family. Alternative(s) were discussed with the patient with their relative benefits and risks as well as the consequences of not accepting the operation were included in obtaining consent. Surgeon: NAHED COTO MD, PHD Procedure Assisted By: kavin Hall Description of Procedure: This is a complex surgery on the lumbar spine and an assistant superintendent as needed for safety of the surgery for setup of instrumentation, retraction and closing. History: This 64-year-old female presented with a lumbar degenerative scoliosis and left lumbar radiculopathy. She had an anterior lumbar fusion done in the past in another institution. Based on her clinical symptoms we decided to only correct the L4-5 segment to decompress the exiting L4 and L5 nerve roots. The patient was offered an oblique lumbar lateral interbody fusion followed by a posterior lateral instrumented fusion L4-5. The procedure and complications were explained and the patient was consented. Procedure: The patient was brought to the operating room and endotracheally intubated. The patient was positioned on the Shay spine table in a modified prone position for ease of access from the left side.. 2C arms were installed for fluoroscopy. Prepping and draping was done followed by timeout. The landmarks, including spinal processes, transverse processes, disc space, endplates and pedicles are identified and marked. The following steps are taken for each specified level: L4-5 level: Cage size 12 mm high and 30 mm long titanium . The patient was turned using the rotation of the surgical table so a near direct anterior lateral approach to the lumbar spine could be achieved. A small incision was then made superior to the mid iliac crest and then using biplanar fluoroscopy visualization, under electrophysiological monitoring and stimulation, we introduced an electrophysiological probe through the retroperitoneal space into the desired disc anterior to the transverse process and then passed it into the disc space after finding a silent window. The sleeve was retained and the probe was removed, then the K wire was passed sequentially into the disc space. A dilating tube was then passed along the same route. Following this, a working channel, a working channel was then passed sequentially into the disc space. The working channel was manually held in position while a series of disc cleaning tools were passed through the channel to remove the affected disc under clear and direct biplanar fluoroscopic visualization, decompress the nerve roots and equal corticated vertebral endplates at this segment. Arthrodesis of the intervertebral space via an anterior retroperitoneal exposure was achieved through Kambin's [place] and lateral extraforaminal space. Allograft was added into the anterior disc space. The working channel was then removed. A titanium interbody cage tightly packed with allograft was then inserted into the midportion of the intervertebral disc space over a K-wire under biplanar fluoroscopic visualization and intraoperative neuro monitoring. The inter pedicular and intradiscal space was significantly enlarged and disc height was restored to worked normal anatomy there for releasing pressure on the nerve roots visual largely the spinal canal and lateral recess as well as foramen were bilateral decompressed and all bones were confined to the borders of the disc space . The following steps are then taken for each specified level: L4-5 level: Bilateral L4 and L5 screws with a diameter of 6.5 x 40 mm. The posterolateral fusion is initiated after the patient is rotated to a true prone position. The entry point to the pedicle is identified in the AP and lateral views and then the skin incision is injected with local anesthetic. We entered the pedicle with the pediguard tap after which a K-wire was introduced into the vertebral body. Additionally, I used a small periosteal decorticator along the screws to refresh the surface of the bone and facet and I put some amount of allograft for additional stability for the posterolateral fusion. Over the K-wire we insert pedicle screws bilaterally. After the screws were placed, we put the wendy in place and under fluoroscopic imaging, we locked the wendy in place and removed the screw tops and then each incision has been closed with 0 Vicryl for the fascia and a 3-0 Vicryl for the subdermal layer. Steri-Strips were used to approximate the incisions. An OpSite with Tegaderm was used to cover the incision. Final x-rays and AP and lateral projection showed good position of the interbody device and instrumentation. All sponge and needle counts were correct. The patient was extubated and transported in a stable condition to the recovery room. 2-0 Vicryl This procedure was done with the aid of a physician assistant superintendent as a qualified resident was not available. Anesthesia: General Estimated Blood Loss (ml): 25 mL Specimen: None Duration of Surgery: 45 minutes Postoperative Plan: Admit to inpatient
[2024-08-16] MEDS: 0.9 % Sodium Chloride 1,000 ML 75 ML IVCONT ×2 (11:34→23:36)
[2024-08-16] MEDS: hydrOXYzine HCL 25 MG TABLET PO ×2 (11:36→19:01)
[2024-08-16] MEDS: Ketorolac Tromethamine 15 MG/ML VIAL IVPUSH ×3 (11:40→22:33)
--- NOTE | 2024-08-16 13:56 | MHC.CM.PN ---
EMR REVIEWED, PT ADMITTED S/P L4-5 LUMBAR FUSION, CM MET W/PT AND PT REPORTS SHE LIVES W/HER ANTHONY, IS INDEP W/ALL CARE, DENIES USE OF DME/HOME SERVICES. P.T. RECOMMENDED HOME W/FAMILY SUPPORT. PT VERIFIES PCP ON FILE IS CORRECT AND REPORTS HER ANTHONY IS HER HCP AND THINKS THERE MAY A COPY AT [facility], CM WILL CONTACT [facility] AND IF THEY DON'T HAVE A COPY CM WILL COMPLETE A NEW ONE IN AM SHE HAS BEEN UNDER ANESTHESIA TODAY.
[2024-08-16] MEDS: Acetaminophen 1,000 MG/100 ML PIGGYBACK 400 MG IV ×2 (15:17→21:50)
[2024-08-16] MEDS: Nicotine Polacrilex 2 MG GUM BUCCAL (17:33)
[2024-08-16] MEDS: traZODone HCL 100 MG TABLET PO (19:01)
[2024-08-16] MEDS: Docusate Sodium 100 MG CAPSULE PO (19:01)
[2024-08-16] MEDS: cloNIDine HCL 0.1 MG TABLET PO (19:01)
[2024-08-17 03:22] VITALS: BP 98/50; PULSE 76; RESP 18; TEMP 36; O2SAT 96
[2024-08-17] MEDS: Acetaminophen 1,000 MG/100 ML PIGGYBACK 400 MG IV ×2 (03:26→08:26)
[2024-08-17] MEDS: Ketorolac Tromethamine 15 MG/ML VIAL IVPUSH ×2 (04:42→11:54)
--- NOTE | 2024-08-17 07:03 | P.DS_ITS ---
DS: Providers Provider Date of Service: 08/17/24 Date of admission: 08/16/24 07:41 Primary care physician: Aby Webster MD DS: Summary Time Attestation Discharge Coordination Time (in mins): 15 Quality: Safe Use of Opioids Does Pt have an Active Cancer Diagnosis on the Problem List?: No Quality: Stroke Does the patient have a stroke diagnosis?: No Physical Exam Vital Signs: Vital Signs: Last Vital Signs Temp 96.8 F 08/17/24 03:22 Pulse 76 08/17/24 03:22 Resp 18 08/17/24 03:22 BP 98/50 L 08/17/24 03:22 Pulse Ox 96 08/17/24 03:22 O2 Del Method Room Air 08/17/24 03:22 O2 Flow Rate 2 08/16/24 11:11 BMI result Body Mass Index 21.4 Discharge Plan Discharge Anticipated Discharge Date/Time: 08/17/24 07:35 Patient Disposition: Home, Self-Care Discharge Diagnosis: s/p L4-5 Transkambin Lumbar Fusion Referrals: Aby Webster MD [Primary Care Provider] - 1 Week Discharge Medications: New gabapentin 300 mg capsule 300 mg PO TID Qty: 30 1RF hydroxyzine HCl 25 mg tablet 25 mg PO TID Qty: 30 1RF methocarbamol 750 mg tablet 750 mg PO TID Qty: 30 1RF oxycodone 5 mg tablet See Rx Instructions .ROUTE .COMPLEX Qty: 40 0RF Rx Instructions: Take 1-2 tablets by mouth every 4 hours as needed for severe pain. Partial Fill upon patient request. Continued bupropion HCl 100 mg tablet sustained-release 12 hr 100 mg PO BID fluoxetine 40 mg capsule 40 mg PO DAILY clonidine HCl 0.1 mg tablet 0.1 mg PO BEDTIME trazodone 100 mg tablet 100 mg PO BEDTIME omeprazole 20 mg Capsule,Delayed Release(Dr/Ec) 20 mg PO DAILY PRN (Reason: Gastric Reflux) Excedrin Migraine 250-250-65 mg Tablet 1 tab PO Q4-6H PRN (Reason: Pain) naproxen sodium [Aleve] 220 mg Capsule 220 mg PO Q12H PRN (Reason: Pain) albuterol sulfate 90 mcg/actuation HFA aerosol inhaler 1 puff inhalation Q4H PRN (Reason: Shortness Of Breath) docusate sodium [Colace] 100 mg capsule 100 mg PO BID Qty: 20 0RF Held oxycodone 5 mg tablet 5 mg PO Q4H PRN (Reason: pain) Qty: 30 0RF Hold Instructions: Resume on 08/17/24. This is an old not active Rx Rx Instructions: Partial Fill upon patient request. Discharge Orders: Discharge Order (Routine); Ordered 08/17/24 Ordered By: Shiva Owens Diet: Advance to usual diet Activity on Discharge: As tolerated Stand Alone Forms: Patient Portal Discharge page Print Language: Croatian Activity Restrictions/Additional Instructions: After your spinal surgery we ask you to observe the following restrictions/g uidelines: Activity: It is normal to feel some discomfort as you increase your activity, but that will improve with time. We ask you avoid heavy lifting or acitivities that cause pain. As a general rule, 8lbs is a safe limit for lifting right after surgery. Walk as much as you feel comfortable but not to exhaustion. You will feel extra tired the first few days after surgery. Stay well hydrated. It is OK to walk up and down stairs You may return to driving when you are off narcotics (such as vicodin, oxycodone, dilaudid, etc), and you are back to normal functional capacity. If you have any concerns please check with office before driving. Return to work is specific to each patient and each surgery, so please speak with your doctor/PA at first follow up. Please bring paperwork such as FMLA at that time if you need it filled out. Medications: We will be sending in Gabapentin, Hydroxyzine, Methocarbamol and Oxycodone. Pl ease take these medications as prescribed for post-operative pain control. We recommend you take 1,000mg Tylenol every 8 hours for the first few weeks after surgery, if you do not have any liver issues and can tolerate this medication. Do not exceed 4,000mg daily. We will give you a short supply of narcotics after surgery (usually one weeks worth). If you need more please call the office but do not use more than prescribed. You will need to give our office 48 hours notice if you need narcotics refilled and we do not fill narcotics on weekends or evenings. If you are on a narcotic, it is a good idea to take a stool softener such as colace or senna to avoid constipation If you take blood thinner such as aspirin, Plavix, Coumadin, Effient, Eliquis etc for conditions such as Afib, DVT, Pulmonary embolus, coronary disease, stents etc please speak with your surgeon about specific details as to when you can resume these medications. You can resume NSAIDs on post op day 1 (eg: Motrin, Naproxen, etc). Follow up: Please call the office, , after surgery to arrange a 3 week follow up for wound check. Wound Care: You may remove your dressing on the first day after surgery. ?You may ?leave open to air. Please do not remove the steri strips underneath. they will fall off on their own in one week. IT IS NORMAL FOR THE WOUND TO OOZE OR BE BLOODY FOR A FEW DAYS AFTER SURGERY. ?IF THIS HAPPENS JUST PLACE NEW DRESSING OVER IT TO AVOID STAINING CLOTHES. You may shower on post op day # 1 We ask that you do not let the water soak the wound. If it does get wet, just towel dry lightly. Please do not scrub your incision or place any type of chemical/ointment on the wound. No tub baths, pools or jacuzzis for one month. If you have any leaking or redness from your wound, or fevers, please call the office. Care Plan Goals: Returned to normal activity as tolerated Health Concerns: None Plan of Treatment: Follow-up in clinic in 2-3 weeks Assessment: POD: 1 Procedure: L4-5 Transkambin lumbar fusion Patient reports she is up walking around is otherwise doing well. She was out of bed yesterday and today working with PT and reportedly ambulating well. She feels her symptoms are much better than pre-operatively. She still reports mild pain in her low back with good relief with pain medication. She is voiding well, tolerating diet. Afebrile, vital signs stable. Full strength 5/5 UE / LE. Back dressings have some staining without signs of hematoma. No active sanguineous drainage. Area is dry. Plan: Patient meets criteria to be medically discharged home. She was seen at bedside with Dr. Osuna.
--- NOTE | 2024-08-17 07:09 | HO.NEUROPN_ITS ---
Neurosurgery Operative Note Date of Service: 08/17/24 Narrative: POD: 1 Procedure: L4-5 Transkambin lumbar fusion Teresa is a pleasant 64 y/o female who underwent a L4-[address] Osuna yesterday. Patient reports she is up walking around is otherwise doing well. She was out of bed yesterday and today working with PT and reportedly ambulating well. She feels her symptoms are much better than pre-operatively. She still reports mild pain in her low back with good relief with pain medication. She is voiding well, tolerating diet. Afebrile, vital signs stable. Full strength 5/5 UE / LE. Back dressings have some staining without signs of hematoma. No active sanguineous drainage. Area is dry. Plan: Patient meets criteria to be medically discharged home. She was seen at bedside with Dr. Osuna. I sent in 4 medications to her pharmacy in [place]; Gabapentin, Hydroxyzine, Methocarbamol, Oxycodone. She can remove her bandage today and shower today. Leave steri-strips on for 1 week. All of her questions were answered.
[2024-08-17] MEDS: Omeprazole 20 MG CAPSULE.DR PO (07:20)
[2024-08-17 07:36] VITALS: BP 98/50; BP 99/67; PULSE 75; PULSE 76; RESP 18; TEMP 36.8; O2SAT 94; O2SAT 96
--- NOTE | 2024-08-17 08:20 | MHC.CM.PN ---
PT MEDICALLY CLEARED FOR DC HOME SELF CARE, CM RECEIVED COPY OF HCP FROM [facility] [place], ADDITIONAL COPY GIVEN TO PT, PT'S FOR TRANSPORT.
[2024-08-17] MEDS: Docusate Sodium 100 MG CAPSULE PO (08:25)
[2024-08-17] MEDS: FLUoxetine HCl 20 MG CAPSULE 40 MG PO (08:25)
--- NOTE | 2024-08-17 08:32 | HO.POSTANES ---
Post Anesthesia Evaluation Post Anesthesia Evaluation Date of Service: 08/17/24 Vital Signs: Vital Signs Temp Pulse Resp BP Pulse Ox O2 Del Method 08/17/24 07:36 98.2 F 75 18 99/67 94 Room Air 08/17/24 07:36 76 98/50 L 96 08/17/24 03:22 96.8 F 76 18 98/50 L 96 Room Air 08/16/24 23:25 96.8 F 68 16 109/55 L 94 Room Air Anesthesia: General Endotracheal-GETA Mental Status: Awake Pain Control: Satisfactory Nausea/Vomiting: None Hydration: Adequate Anesthesia-Related Issues: No Anes. Related Issues
[2024-08-17] MEDS: hydrOXYzine HCL 25 MG TABLET PO (11:55)
[2024-08-17] MEDS: Nicotine Polacrilex 2 MG GUM BUCCAL (13:36)
== END 2024-08-17 14:35 | disposition home or self-care (01) | DRG 304 ==
LOC: HO.SSSA 07:42 → HO.S3 10:39
PROVIDERS: Nurse Practitioner; Admitting Provider Neurological Surgery; PCP Internal Medicine; Visit Provider Neurological Surgery
PROC: 0SG00A0 Fusion of Lumbar Vertebral Joint with Interbody Fusion Device, Anterior Approach, Anterior Column, Open Approach (ICD-10-PCS; CPT 22558; principal; 2024-08-16 07:30)
DX: M54.16 Radiculopathy, lumbar region (principal); M41.56 Other secondary scoliosis, lumbar region; F17.210 Nicotine dependence, cigarettes, uncomplicated; J43.9 Emphysema, unspecified; Z71.6 Tobacco abuse counseling; Z79.899 Other long term (current) drug therapy
CPT/HCPCS: 22558; 22853; 63056; 22612; 22840; 20930; 36415; 80048; 85027; 86850; 86900; 86901; 93005; 97116; 97162; 99221; C1713; C1889; C9290; J0131; J0665; J1100; J1885; J2003; J2250; J2405; J2704; J3010; J3370; L8699

== ENCOUNTER → 2024-08-16 07:41 | Outpatient (BNV) | payer OTHER, SELFPAY | PROVIDERS: Admitting Provider Neurological Surgery; PCP Internal Medicine; Visit Provider Neurological Surgery | DX: Z48.89 Encounter for other specified surgical aftercare (principal) | CPT/HCPCS: 20930; 22558; 22612; 22840; 22853; 63056; 99024; 99499 ==

== ENCOUNTER 2024-09-16 13:39 | Outpatient (AMB) | payer OTHER, SELFPAY ==
--- NOTE | 2024-09-16 14:18 | HO.SPINEOV ---
Intake Visit Reasons: 1st post op Intake Note: Mrs. Thomas is here today for her 1st post-op visit. Household Ref[employer]igerator [employer] Required: No Allergies Penicillins Allergy (Severe, Verified 09/01/23 06:11) Anaphylaxis Assessment & Plan Assessment & Plan (1) Lumbar radiculopathy: Code(s): M54.16 - Radiculopathy, lumbar region Category: Medical Plan Mrs Thomas is about a month out from her L3-4 trans Kambin interbody fusion. She has been dealing with some tingling and numbness sensation running down her leg. She did not have that before surgery. She has also been dealing with stiffness and some lack of mobility. She has been unable to refill her oxycodone because helped him [place] did not allow her to refill it. More less she just been using a muscle relaxer. On my exam today, she is slow to stand up, her wounds have all healed up well. She is able to ambulate around the hallways in the examining room independently. We discussed activity guidelines, restrictions and expectations after lumbar fusion. I encouraged her to use Aleve twice a day, Tylenol as well as the muscle relaxers and gabapentin. This should give her enough pain coverage that she will not need the narcotic that her insurance company refused to fill any way. I would like to see her back in 6 weeks with set of x-rays. Wayne Osuna MD, PhD [facility] Coding Level of Care Code Global (65915) Diagnoses Lumbar radiculopathy M54.16
== END 2024-09-16 14:39 | disposition home or self-care (01) ==
PROVIDERS: PCP Internal Medicine; Visit Provider Physician Assistant
DX: M54.16 Radiculopathy, lumbar region (principal)
CPT/HCPCS: 99024